=== PATIENT | male | born 1950 | race Caucasian/White ===

== ENCOUNTER 2021-05-04 14:17 | Emergency (ER) | payer OTHER, SELFPAY ==
[2021-05-04 14:18] VITALS: BP 183/99; PULSE 96; RESP 16; TEMP 36.4; O2SAT 96; BMI 25.7
--- NOTE | 2021-05-04 14:36 | CT_ITS ---
STUDY: CT BRAIN WITHOUT CONTRAST REASON FOR EXAM: Male, 71 years old. Change in vision RADIATION DOSAGE (If Supplied By Facility): CTDIvol = ( 44.99 ) mGy, DLP = ( 796.11 ) mGycm TECHNIQUE: Transaxial CT imaging of the brain was performed without administration of intravenous contrast material. Individualized dose optimization techniques were used for this CT. COMPARISON: No relevant priors. FINDINGS: Normal soft tissue structures. Normal calvarium. There is mild cerebral atrophy with widening of the extra-axial spaces and ventricular dilatation. Normal white matter tracts of the cerebral hemispheres. Normal basal ganglia and thalami. Normal brainstem. Normal cerebellum. There is no intracranial hemorrhage. There are no findings of an acute ischemic infarction. Normal visualized paranasal sinuses. CT/Brain/Head without Contrast IMPRESSION: Chronic involutional changes of the brain. Electronically Signed: César Chung MD at 15:24 EDT , Service support ,
--- NOTE | 2021-05-04 14:56 | EX.ED.VIS.EY ---
HPI History of Present Illness Chief Complaint: Eye Problem Narrative Narrative: Patient is a 71-year-old male who states that over the past few days he has noticed that he has blurry/double vision in his right eye but only when he deviates his eyes to the right. He denies any trauma prior to this happening he denies any eye pain or light sensitivity. He states he does not wear contacts or glasses. He states he contacted his doctor at [facility] and was advised he should come get a head CT and therefore presents for evaluation. PFSH PFSH Allergy/AdvReac Type Severity Reaction Status Date / Time No Known Allergies Allergy Verified 05/04/21 14:19 Social History Smoking Status: Current every day smoker tobacco type: cigarettes ROS ROS ED Constitutional Constitutional ED: Denies chills or fever(s) Eyes Eyes: Reports blurry vision and change in vision ENT ENT ED: Denies sore throat Cardiovascular Cardiovascular: Denies chest pain Respiratory/Chest Respiratory/Chest: Denies cough or dyspnea Gastrointestinal Gastrointestinal: Denies abdominal pain, diarrhea, nausea or vomiting Genitourinary Genitourinary ED: Denies dysuria Musculoskeletal Musculoskeletal: Denies myalgias Integumentary Denies rash Neurologic Neurologic: Denies headache(s), paresthesias or weakness Hematologic/Lymphatic Hematologic/Lymphatic: Denies easy bleeding or easy bruising EXAM Physical Exam Const Vital Signs: 05/04/21 14:18 Temperature 97.5 F L Temperature Source Temporal Pulse Rate 96 Respiratory Rate 16 Blood Pressure 183/99 H Blood Pressure Mean 127 Pulse Ox 96 Oxygen Delivery Method Room Air Positive well nourished and well developed General Appearance ED: well developed HEENT Reports moist mucous membranes HEENT Narrative: No pain on palpation along either temporal portion of the scalp Eyes PERRL and EOMs intact bilaterally Eyes Narrative: Pupils are equal reactive to light and accommodation extraocular muscles are intact. The macula is normal in appearance and not pale in color. There is no blood and thunder appearance noted. Patient has normal visual acuity bilaterally. There are no obvious signs of trauma or infection present. General Eye ED: Yes normal appearance of both eyes and normal light reflex Visual Acuity: acuity normal Alignment: alignment normal Periorbital: periorbital findings normal Eyelid: eyelids normal Conjunctiva: conjunctiva normal Sclera: sclera normal Cornea: cornea normal Pupil: PERRL and accommodation reflex normal Direct Ophthalmoscopy: normal light reflex, anterior chamber normal, No macular abnormality and No vascular abnormality Neck full ROM, No nuchal rigidity and supple Resp normal respiratory effort and clear to auscultation bilaterally Cardio regular rate and regular rhythm GI non-tender and non-distended Auscultation: normoactive bowel sounds Palpation: soft Extremity normal to inspection Neuro oriented x3 and CN's II-XII intact bilaterally Sensorium / Orientation: alert Psych mental status grossly normal Skin no rashes or lesions noted Lesions: no lesions Rashes: no rashes MDM MDM MDM Narrative Medical decision making narrative: Patient presented to the ER with no focal neurologic deficits and his extraocular motions were intact. His eye was not held in a down and out position to suggest any type of cranial nerve palsy. I did perform a CT scan at this time which reveals age-related changes with no obvious bleed or mass. On reevaluation he still has 20/20 vision in his extraocular motions remain intact. Therefore this time I feel he is safe for discharge and can follow-up with his front end manager for further testing Discharge Plan Triage Chief Complaint: Eye Problem ED Provider: Reyes Dougherty Dx/Rx/DC Orders Clinical Impression: Diplopia Instructions: ED Double Vision (Diplopia) [facility]errals: [facility] [Primary Care Provider] - Disposition Disposition: Home, Self Care
[2021-05-04 15:54] VITALS: BP 165/88; PULSE 82; RESP 16; O2SAT 97
== END 2021-05-04 16:03 | disposition home or self-care (01) ==
PROVIDERS: Emergency Provider Emergency Medicine
DX: H53.2 Diplopia (principal); F17.210 Nicotine dependence, cigarettes, uncomplicated
CPT/HCPCS: 70450; 99283

== ENCOUNTER → 2023-06-30 | Outpatient (CLI) | payer MEDICARE, MEDICAID, SELFPAY ==
[2023-06-30 12:25] LABS: Absolute Lymphocyte Count 1.52 X10^3/uL (0.83-4.51); Absolute Neutrophil Count 4.9 X10^3/uL (2.0-7.7); Basophil# 0.03 X10^3/uL; Basophil% 0.4 % (0-1); Eosinophil# 0.09 X10^3/uL; Eosinophils% 1.2 % (0-5); Lymphocyte # 1.52 X10^3/ul (0.83-4.51); Lymphocyte % 20.5 % (19-41); Mean Corp Hgb Conc 31.7 g/dL (32-36); Mean Corpuscular Hgb 27.9 pg (27.0-32.0); Mean Corpuscular Volume 87.9 fL (80-94); Mean Platelet Vol. 10.2 fl (6.2-12.0); Monocyte# 0.87 X10^3/uL; Monocyte% 11.7 % (0-10); NRBC Flagged by Analyzer 0 % (0-5); Neutrophil # 4.89 X10^3/uL (2.7-7.7); Neutrophil % 65.9 % (47-70); Platelet Count 287 K/mm3 (150-450); Red Blood Count 6.46 M/mm3 (4.6-6.2); White Blood Count 7.4 K/mm3 (4.4-11.0)
[2023-06-30 12:56] LABS: AST(SGOT) 13 U/L (15-37); Alanine Aminotransfer ALT/SGPT 18 U/L (16-61); Alkaline Phosphatase 81 U/L (45-117); Anion Gap 6 (5-15); BUN 10 mg/dL (7-18); BUN/Creat Ratio 9.4 RATIO (10-20); Calcium,Total 9.5 mg/dL (8.5-10.1); Chloride 104 mmol/L (98-107); Cholesterol 225 mg/dL (200); Creatinine, Serum 1.06 mg/dL (0.70-1.30); EST Glomerular Filtration Rate 73 mL/min (>60); Est Glom Filt Rate - Afr Amer 88 mL/min (>60); Globulin 4.1 g/dL (2.2-4.2); Glucose 200 mg/dL (74-106); High Density Lipoprotein 38 mg/dL; Potassium 3.8 mmol/L (3.5-5.1); Protein, Total 8.1 g/dL (6.4-8.2); Sodium Level 138 mmol/L (136-145); Triglycerides 70 mg/dL; Very Low Density Lipoprotein 14 mg/dL (5-40)
[2023-06-30 13:51] LABS: Hemoglobin A1c 8.8 % (3.8-5.6)
[2023-06-30 14:40] LABS: Hematocrit 56.8 % (40-54)
[2023-07-01 13:22] LABS: Pathologist Review Reviewed
== END | disposition home or self-care (01) ==
LOC: MFPLAB 10:01
PROVIDERS: PCP Family Medicine; Visit Provider Family Medicine
DX: I10 Essential (primary) hypertension (principal); E11.9 Type 2 diabetes mellitus without complications; E78.5 Hyperlipidemia, unspecified
CPT/HCPCS: 36415; 80053; 80061; 83036; 85025

== ENCOUNTER → 2023-07-07 | Outpatient (CLI) | payer MEDICARE, MEDICAID, SELFPAY ==
[2023-07-07 12:47] LABS: Absolute Lymphocyte Count 1.76 X10^3/uL (0.83-4.51); Absolute Neutrophil Count 4.7 X10^3/uL (2.0-7.7); Basophil# 0.03 X10^3/uL; Basophil% 0.4 % (0-1); Eosinophils% 1.3 % (0-5); Hematocrit 54.8 % (40-54); Hemoglobin 17.5 g/dL (13.0-16.5); Lymphocyte # 1.76 X10^3/ul (0.83-4.51); Lymphocyte % 23.5 % (19-41); Mean Corp Hgb Conc 31.9 g/dL (32-36); Mean Corpuscular Hgb 28.1 pg (27.0-32.0); Mean Corpuscular Volume 88.1 fL (80-94); Mean Platelet Vol. 9.9 fl (6.2-12.0); Monocyte# 0.85 X10^3/uL; Monocyte% 11.4 % (0-10); NRBC Flagged by Analyzer 0 % (0-5); Neutrophil % 62.9 % (47-70); Platelet Count 288 K/mm3 (150-450); RBC Distribution Width CV 13.1 % (11.6-14.6); RBC Distribution Width SD 41.9 fl (35.1-43.9); Red Blood Count 6.22 M/mm3 (4.6-6.2); White Blood Count 7.5 K/mm3 (4.4-11.0)
== END | disposition home or self-care (01) ==
LOC: MFPLAB 10:52
PROVIDERS: PCP Family Medicine; Visit Provider Family Medicine
DX: D58.2 Other hemoglobinopathies (principal)
CPT/HCPCS: 36415; 85025

== ENCOUNTER → 2023-10-04 | Outpatient (CLI) | payer MEDICARE, MEDICAID, SELFPAY ==
[2023-10-04 12:52] LABS: Hemoglobin A1c 9.4 % (3.8-5.6)
== END | disposition home or self-care (01) ==
LOC: MFPLAB 10:46
PROVIDERS: PCP Family Medicine; Visit Provider Family Medicine
DX: E11.9 Type 2 diabetes mellitus without complications (principal)
CPT/HCPCS: 36415; 83036

== ENCOUNTER → 2024-02-02 | Outpatient (CLI) | payer MEDICARE, MEDICAID, SELFPAY ==
[2024-02-02 15:09] LABS: Absolute Lymphocyte Count 1.48 X10^3/uL (0.83-4.51); Basophil# 0.04 X10^3/uL; Basophil% 0.5 % (0-1); Eosinophil# 0.05 X10^3/uL; Eosinophils% 0.7 % (0-5); Hematocrit 54.9 % (40-54); Hemoglobin 17.7 g/dL (13.0-16.5); Lymphocyte # 1.48 X10^3/ul (0.83-4.51); Lymphocyte % 19.7 % (19-41); Mean Corp Hgb Conc 32.2 g/dL (32-36); Mean Corpuscular Hgb 27.2 pg (27.0-32.0); Mean Corpuscular Volume 84.3 fL (80-94); Mean Platelet Vol. 9.7 fl (6.2-12.0); Monocyte# 0.83 X10^3/uL; Monocyte% 11.1 % (0-10); NRBC Flagged by Analyzer 0 % (0-5); Neutrophil # 5.04 X10^3/uL (2.7-7.7); Neutrophil % 67.2 % (47-70); Platelet Count 309 K/mm3 (150-450); RBC Distribution Width CV 13.9 % (11.6-14.6); Red Blood Count 6.51 M/mm3 (4.6-6.2); White Blood Count 7.5 K/mm3 (4.4-11.0)
== END | disposition home or self-care (01) ==
LOC: MFPLAB 11:52
PROVIDERS: PCP Family Medicine; Visit Provider Family Medicine
DX: D58.2 Other hemoglobinopathies (principal)
CPT/HCPCS: 36415; 85025

== ENCOUNTER → 2024-02-24 | Outpatient (CLI) | payer MEDICARE, MEDICAID, SELFPAY ==
--- NOTE | 2024-02-24 12:44 | CDU_ITS ---
Reason For Study: Syncope and collapse Rt. Velocities/BP Lt. Velocities/BP Prox CCA 68.3/7.8 cm/sec. Prox CCA 84.9/9.9 cm/sec. Mid CCA 88.1/14.5 cm/sec. Mid CCA 55.2/13.3 cm/sec. Dist CCA 67.4/10.7 cm/sec. Dist CCA 59.6/9 cm/sec. Prox ICA 80.6/16.8 cm/sec. Prox ICA 148.5/33.4 cm/sec. Mid ICA 78.4/23.4 cm/sec. Mid ICA 80.6/30 cm/sec. Dist ICA 68.5/17.9 cm/sec. Dist ICA 79.4/25.6 cm/sec. Rt. ICA/CCA = 0.91. Lt. ICA/CCA = 2.69. Prox ECA 94.9/8 cm/sec. Prox ECA 200.4/24.8 cm/sec. Rt. Vert. 32.5/8.1 cm/sec. Lt. Vert. 52.2/15.4 cm/sec. Right Extracranial There is homogeneous, smooth atherosclerotic plaque noted in the right common carotid artery. There is heterogeneous, irregular atherosclerotic plaque noted in the right internal carotid artery. There is homogeneous, smooth atherosclerotic plaque noted in the right external carotid artery. Antegrade flow is noted in the right vertebral artery. Left Extracranial There is homogeneous, smooth atherosclerotic plaque noted in the left common carotid artery. There is heterogeneous, irregular atherosclerotic plaque noted in the left internal carotid artery. There is heterogeneous, irregular atherosclerotic plaque noted in the left external carotid artery. Antegrade flow is noted in the left vertebral artery. Procedure Carotid Duplex [id number]. This is a Carotid Duplex examination using B-mode, color flow and specral Doppler. Exam performed in department. VL/Carotid Duplex Ultrasound Interpretation Summary Mild (<50%) stenosis right extracranial internal carotid. Moderate (50-69%) stenosis left extracranial internal carotid. Patent and antegrade vertebrals bilaterally. Ordering Physician: Romy Alvarez Referring Physician: Romy Alvarez Performed By: Zuly Chandra RVT
--- NOTE | 2024-02-24 12:44 | ECHOD_ITS ---
Reason For Study: SYNCOPE Procedure This was a 2D Doppler, Color Flow transthoracic echocardiogram. Exam performed in department. Left Ventricle Normal LV size. The estimated ejection fraction is 70 %. No evidence for diastolic dysfunction. No regional wall motion abnormalities noted. Right Ventricle Normal RV size. Normal systolic function. Atria The left and right atria are normal. No doppler evidence for ASD. Mitral Valve There is no mitral valve stenosis. No mitral valve insufficiency. Tricuspid Valve There is no tricuspid stenosis. Trivial tricuspid valve insufficiency. Pulmonary artery systolic pressure is 30-35 mmHg. Aortic Valve Trisinus/trileaflet aortic valve. Moderate diffuse aortic valve thickening. Mild aortic stenosis. Mild (1+) aortic valve insufficiency. Pulmonic Valve There is no pulmonic valvular stenosis. No pulmonic valve insufficiency. Great Vessels Normal aortic root. Pericardium/Pleural No pericardial effusion. MMode/2D Measurements & Calculations RVDd: 3.4 cm LVOT diam: 1.9 cm LAV(MOD-bp): 32.3 ml LVOT area: 2.8 cm2 LAV(MOD-bp) Indexed: 17.2 ml/m2 LAV(MOD-sp2): 32.9 ml LAV(MOD-sp4): 30.3 ml SV(MOD-sp4): 40.6 ml SV(sp4-el): 42.2 ml LVAd ap4: 22.7 cm2 LVLd ap4: 7.6 cm EDV(MOD-sp4): 57.0 ml EDV(sp4-el): 57.8 ml LVAs ap4: 10.4 cm2 LVLs ap4: 5.9 cm ESV(MOD-sp4): 16.3 ml ESV(sp4-el): 15.5 ml EF(MOD-sp4): 71.3 % EF(sp4-el): 73.1 % LA A4 area: 13.6 cm2 LA dimension(2D): 3.3 cm RA A4 area: 15.5 cm2 Time Measurements MV dec time: 0.13 sec Doppler Measurements & Calculations MV E max sharif: 102.9 cm/sec Lat Peak E' Sharif: 8.3 cm/sec Med Peak E' Sharif: 8.2 cm/sec MV A max sharif: 55.0 cm/sec E/E' lat: 12.4 E/E' med: 12.6 MV E/A: 1.9 MV V2 max: 95.1 cm/sec MV dec slope: 812.5 cm/sec2 Ao V2 max: 191.7 cm/sec MV max P.6 mmHg Ao max P.9 mmHg MV V2 mean: 47.7 cm/sec Ao V2 mean: 124.9 cm/sec MV mean P.1 mmHg Ao mean P.4 mmHg MV V2 VTI: 22.4 cm Ao V2 VTI: 43.6 cm MVA(VTI): 3.7 cm2 AV (velocity ratio): 0.68 RENITA(I,D): 1.9 cm2 RENITA(V,D): 1.8 cm2 AI max sharif: 531.7 cm/sec LV V1 max: 122.0 cm/sec SV(LVOT): 83.7 ml AI max P.1 mmHg LV V1 max P.0 mmHg LV V1 mean P.8 mmHg AI dec slope: 368.8 cm/sec2 LV V1 mean: 76.6 cm/sec AI P1/2t: 422.2 msec LV V1 VTI: 29.6 cm PA V2 max: 79.6 cm/sec PA V2 mean: 59.0 cm/sec ECHO/Echo Complete Interpretation Summary The estimated ejection fraction is 70 %. No evidence for diastolic dysfunction. Mild aortic stenosis. Mild (1+) aortic valve insufficiency. Ordering Physician: Romy Alvarez Referring Physician: Romy Alvarez Performed By: Yu Pettit RCS
== END | disposition home or self-care (01) ==
PROVIDERS: PCP Family Medicine; Referring Provider Family Medicine; Visit Provider Family Medicine
DX: R55 Syncope and collapse (principal)
CPT/HCPCS: 93306; 93880

== ENCOUNTER → 2024-03-15 | Outpatient (CLI) | payer MEDICARE, MEDICAID, SELFPAY ==
[2024-03-15 13:52] LABS: Hemoglobin A1c 8.6 % (3.8-5.6)
== END | disposition home or self-care (01) ==
LOC: MFPLAB 10:12
PROVIDERS: PCP Family Medicine; Referring Provider Family Medicine; Visit Provider Family Medicine
DX: E11.9 Type 2 diabetes mellitus without complications (principal)
CPT/HCPCS: 36415; 83036

== ENCOUNTER → 2024-03-29 | Outpatient (CLI) | payer MEDICARE, MEDICAID, SELFPAY ==
--- NOTE | 2024-03-29 15:04 | RAD_ITS ---
STUDY: X-RAY - LEFT KNEE REASON FOR EXAM: Male, 74 years old. Knee pain. TECHNIQUE: 3 views of the left knee. COMPARISON: None. FINDINGS: Normal visualized distal femur. Normal visualized proximal tibia and fibula. Normal proximal tibiofibular articulation. There is no demonstrated fracture. Normal medial femorotibial compartment. Normal lateral femorotibial compartment. Normal patellofemoral articulation. There is a tiny knee joint effusion. There are atherosclerotic calcifications. RAD/Knee 3 Views IMPRESSION: Tiny joint effusion. No demonstrated fracture. Electronically Signed: Ramon Santos MD at 15:37 EDT ,
--- NOTE | 2024-03-29 15:04 | RAD_ITS ---
STUDY: X-RAY - RIGHT KNEE REASON FOR EXAM: Male, 74 years old. Knee pain. TECHNIQUE: 3 views of the right knee. COMPARISON: None. FINDINGS: Normal visualized distal femur. Normal visualized proximal tibia and fibula. Normal proximal tibiofibular articulation. There is no demonstrated fracture. Normal medial femorotibial compartment. Normal lateral femorotibial compartment. Normal patellofemoral articulation. There is a small joint effusion. There are atherosclerotic calcifications. RAD/Knee 3 Views IMPRESSION: Small joint effusion. No demonstrated fracture. Electronically Signed: Ramon Santos MD at 12:33 EDT ,
== END | disposition home or self-care (01) ==
PROVIDERS: PCP Family Medicine; Referring Provider Family Medicine; Visit Provider Family Medicine
DX: M25.561 Pain in right knee (principal); M25.562 Pain in left knee
CPT/HCPCS: 73562

== ENCOUNTER 2024-04-05 08:47 | Emergency (ER) | payer MEDICARE, MEDICAID, SELFPAY ==
[2024-04-05 08:49] VITALS: BP 166/89; PULSE 87; RESP 20; TEMP 36.7; O2SAT 96; BMI 19.3
--- NOTE | 2024-04-05 08:50 | NURSING ---
NO OLD EKGS
--- NOTE | 2024-04-05 09:08 | EDS_ITS ---
HPI History of Present Illness Chief Complaint: Chest Pain Informant: patient Onset/Context/Timing Onset: Today and Hours (3) Activity at onset: gradual Timing: Continuous Quality: Positive for Tightness Location: Substernal Worsened By: Nothing Relieved By: Nothing Associated Symptoms: Positive for Cough and Palpitations; Negative for Nausea, Vomiting, Diaphoresis, Dyspnea, Fever, Lightheadedness or Acid Reflux Narrative Narrative: Patient presents with chest pain that began this morning. Patient states it began approximately 3 hours prior to arrival. Patient states that it came on gradually. Patient states it has been constant. Patient states it is starting to improve. Patient describes pain as tightness. Patient states he also felt like his heart was racing. Patient states his pain is over the substernal area. Patient states nothing makes it better and nothing makes it worse. Patient denies any nausea or vomiting. Patient denies any shortness of breath. Patient denies any fevers or chills. Patient denies any diaphoresis. Patient does admit to a cough yesterday. CVD Risk Factors: Positive for Hypertension, Diabetes and Smoking; Negative for Hypercholesterolemia or Family History 1' </=55 PE Risk Factors: Negative for Recent Travel/Surgery, Recent Immobilization, Prior DVT or PE, Cancer or OCP + Smoking + >/=35 PFSH PFSH Medical History Diabetes GERD (gastroesophageal reflux disease) Hyperlipidemia Hypertension Home Medications ?Medication ?Instructions ?Recorded ?Last Taken ?Type empagliflozin 25 mg tablet 25 mg PO DAILY 04/05/24 Unknown History (Jardiance) pantoprazole 40 mg tablet,delayed 40 mg PO DAILY 04/05/24 Unknown History release Allergy/AdvReac Type Severity Reaction Status Date / Time No Known Allergies Allergy Verified 04/05/24 08:51 Family History no significant family his no significant family history Surgical History Hx of surgical amputation of finger Social History (Updated 04/05/24 @ 09:[address] Edson Holman DO) Smoking Status: Current every day smoker tobacco type: cigarettes substance use type: marijuana ROS ROS ED Constitutional Constitutional ED: Denies chills or fever(s) Eyes Eyes: Denies blurry vision or change in vision ENT ENT ED: Denies rhinorrhea or sore throat Cardiovascular Cardiovascular: Reports chest pain and palpitations Respiratory/Chest Respiratory/Chest: Reports cough; Denies dyspnea Gastrointestinal Gastrointestinal: Denies abdominal pain, nausea or vomiting Genitourinary Genitourinary ED: Denies dysuria or hematuria Musculoskeletal Musculoskeletal: Denies back pain or neck pain Integumentary Denies abscess or rash Neurologic Neurologic: Denies headache(s) or weakness Allergic/Immunologic Allergic/Immunologic ED: Denies mouth swelling or urticaria EXAM Physical Exam Const Vital Signs: 04/05/24 08:49 04/05/24 09:34 04/05/24 09:48 Temperature 98.1 F Temperature Source Oral Pulse Rate 87 74 Respiratory Rate 20 H 15 Blood Pressure 166/89 H 106/89 H Blood Pressure Mean 114 94 Pulse Ox 96 97 95 Oxygen Delivery Method Room Air Room Air Room Air 04/05/24 10:14 04/05/24 11:27 Temperature 97.6 F L 98.1 F Temperature Source Oral Pulse Rate 73 79 Respiratory Rate 19 H 16 Blood Pressure 106/89 H 157/81 H Blood Pressure Mean 94 106 Pulse Ox 96 96 Oxygen Delivery Method Room Air Positive well nourished and well developed General Appearance ED: well developed and NAD HEENT Reports moist mucous membranes Neck supple and no JVD Resp normal respiratory effort and clear to auscultation bilaterally Cardio regular rate and regular rhythm GI soft to palpation, non-tender and non-distended Neuro oriented x3, CN's II-XII intact bilaterally and no sensory deficits noted Sensorium / Orientation: awake and alert Motor Exam: strength 5/5 throughout Psych mental status grossly normal Skin no rashes or lesions noted Heart Score History: Slightly/Non-Suspicious ECG: Nonspecific Repolarization Age: >/= 65 years Risk Factors: >/= 3 Risk Factors or History of CAD Score: 5 MDM MDM MDM Narrative Medical decision making narrative: Differential diagnosis includes cardiac dysrhythmia, cardiac ischemia, electrolyte abnormality, pneumonia, pneumothorax, viral illness, gastroesophageal reflux disease, and anxiety. EKG will be obtained to assess for cardiac dysrhythmia and cardiac ischemia. Chest x-ray will be obtained to a ssess for pneumonia and pneumothorax. CBC will be obtained to assess for leukocytosis and anemia. Basic metabolic profile will be obtained to assess for electrolyte abnormality and renal function. High-sensitivity troponin will be obtained to assess for cardiac ischemia. 2-hour repeat high-sensitivity troponin will be obtained to assess for ongoing cardiac ischemia. Lab Data Attestation: I reviewed the patient's lab results. Lab results narrative: CBC was reviewed. Hemoglobin was slightly elevated at 18.2. The remainder is within normal limits. Basic metabolic profile was reviewed. Glucose was mildly elevated at 158. The remainder is within normal limits. PT with INR and PTT were reviewed and were within normal limits. High-sensitivity troponin was reviewed and was normal at 10. Labs: Laboratory Results - last 24 hr 04/05/24 04/05/24 08:51 10:17 WBC 6.8 RBC 6.74 H Hgb 18.2 H* Hct 57.1 H MCV 84.7 MCH 27.0 MCHC 31.9 L RDW Std Deviation 41.1 RDW Coeff of Jesse 13.4 Plt Count 259 MPV 9.8 Immature Gran % (Auto) 0.600 Neut % (Auto) 69.7 Lymph % (Auto) 9.2 L Calloway % (Auto) 18.4 H Eos % (Auto) 1.5 Baso % (Auto) 0.6 Absolute Neuts (auto) 4.8 Absolute Lymphs (auto) 0.63 L Nucleated RBC % 0 PT Cancelled 14.2 INR Cancelled 1.1 APTT Cancelled 34.4 Sodium 137 Potassium 3.6 Chloride 99 Carbon Dioxide 29.0 Anion Gap 9 BUN 16 Creatinine 1.15 Estim Creat Clear Calc 50.98 Est GFR (MDRD) Af Amer 80 Est GFR (MDRD) Non-Af 66 BUN/Creatinine Ratio 13.9 Glucose 158 H Calcium 9.6 Troponin I High Sens 10 Radiography Diagnostic Testing: Clinical Impression(s) from Imaging Studies Chest X-Ray 04/05/24 09:23 IMPRESSION: Hyperinflation and findings suggestive of COPD. Prominence of the central pulmonary arteries. Electronically Signed: César Chung MD at 9:44 EDT , [facility] and lateral chest x-ray was obtained. There are 2 views. On my independent interpretation, lung beltran are hyperinflated consistent with COPD. There is normal cardiac silhouette. Bony thorax is normal. There is no acute process noted. Radiologist also interpreted the x-ray and agrees. EKG Initial EKG: Attestation: I personally reviewed and interpreted this EKG as follows: Interpretation: Sinus Rhythm and Non-Specific ST Changes Comments: EKG was obtained. On my independent interpretation, it showed a normal sinus rhythm with occasional PACs with a rate of 78. LA interval, QRS interval, and QTc intervals were all normal. Perry was normal. There are nonspecific ST-T wave changes. Prior EKG tracings: not available for review Prior: No Prior Treatment and Re-Evaluation :: Patient was given aspirin. Patient did not want to wait to have a repeat troponin drawn. Patient was advised that his symptoms started only 3 hours prior to arrival and the initial troponin could be falsely negative. Patient understood the risk. Patient was advised of the risks of leaving without obtaining a second troponin. Patient was advised of the risks including myocardial infarction and . Patient wanted to leave. Patient will be signed out AGAINST MEDICAL ADVICE. Patient was instructed return if worse in any way. Patient was instructed to follow-up with his primary care physician. Discharge Plan Triage Chief Complaint: Chest Pain ED Provider: Edson Holman Dx/Rx/DC Orders Clinical Impression: Chest pain, Hypertension Instructions: ED Chest Pain, Uncertain Cause Prescriptions: No Action pantoprazole 40 mg tablet,delayed release (DR/EC) 40 mg PO DAILY Jardiance 25 mg tablet 25 mg PO DAILY Primary Care Provider: Romy Alvarez Referrals: Romy Alvarez MD [Primary Care Provider] - 3-5 Days Print Language: [place] Islander Disposition Disposition: Against Medical Advice Discharge Date/Time: 04/05/24 11:28
--- NOTE | 2024-04-05 09:22 | EKG12_ITS ---
Test Reason : CHEST TIGHTNESS Blood Pressure : / mmHG Vent. Rate : 078 BPM Atrial Rate : 078 BPM P-R Int : 118 ms QRS Dur : 084 ms QT Int : 378 ms P-R-T Axes : -27 053 -88 degrees QTc Int : 430 ms Sinus rhythm with Premature supraventricular complexes Low voltage QRS ST & T wave abnormality, consider inferolateral ischemia Abnormal ECG Confirmed by Esteban Gloria ([id number]), communications editor VANDA VEGA ([id number]) on 04/09/2024 10:44:49 AM Referred By: Confirmed By:Esteban Gloria
--- NOTE | 2024-04-05 09:23 | RAD_ITS ---
STUDY: X-RAY CHEST REASON FOR EXAM: Male, 74 years old. Chest pain and chest tightness. TECHNIQUE: PA and lateral views of the chest. COMPARISON: None. FINDINGS: EKG electrodes are seen. There is hyperinflation of the lungs consistent with chronic obstructive lung disease (COPD). There is no demonstrated pleural abnormality. Normal size heart. Normal mediastinum and phu. There is prominence of the pulmonary hilar arteries without peripheral pulmonary vascular congestion, suggesting pulmonary hypertension. There is atherosclerotic calcification of the aortic arch. There are degenerative changes of the visualized thoracic spine. Normal visualized ribs, clavicles, and shoulders. There is no demonstrated abnormality of the visualized soft tissue structures of the upper abdomen. RAD/Chest PA and Lateral IMPRESSION: Hyperinflation and findings suggestive of COPD. Prominence of the central pulmonary arteries. Electronically Signed: César Chung MD at 9:44 EDT ,
[2024-04-05 09:34] VITALS: O2SAT 97
[2024-04-05] MEDS: Aspirin 81 MG TAB.CHEW 324 MG PO (09:34)
[2024-04-05 09:39] LABS: Absolute Lymphocyte Count 0.63 X10^3/uL (0.83-4.51); Absolute Neutrophil Count 4.8 X10^3/uL (2.0-7.7); Basophil# 0.04 X10^3/uL; Basophil% 0.6 % (0-1); Eosinophils% 1.5 % (0-5); Lymphocyte # 0.63 X10^3/ul (0.83-4.51); Lymphocyte % 9.2 % (19-41); Mean Corp Hgb Conc 31.9 g/dL (32-36); Mean Corpuscular Volume 84.7 fL (80-94); Mean Platelet Vol. 9.8 fl (6.2-12.0); Monocyte# 1.26 X10^3/uL; Monocyte% 18.4 % (0-10); NRBC Flagged by Analyzer 0 % (0-5); Neutrophil # 4.76 X10^3/uL (2.7-7.7); Neutrophil % 69.7 % (47-70); Platelet Count 259 K/mm3 (150-450); RBC Distribution Width CV 13.4 % (11.6-14.6); RBC Distribution Width SD 41.1 fl (35.1-43.9); Red Blood Count 6.74 M/mm3 (4.6-6.2); White Blood Count 6.8 K/mm3 (4.4-11.0)
[2024-04-05 09:40] LABS: Hematocrit 57.1 % (40-54)
[2024-04-05 09:42] LABS: Hemoglobin 18.2 g/dL (13.0-16.5)
[2024-04-05 09:48] VITALS: BP 106/89; PULSE 74; RESP 15; O2SAT 95
[2024-04-05 09:50] LABS: Anion Gap 9 (5-15); BUN 16 mg/dL (7-18); BUN/Creat Ratio 13.9 RATIO (10-20); Calcium,Total 9.6 mg/dL (8.5-10.1); Chloride 99 mmol/L (98-107); Creatinine, Serum 1.15 mg/dL (0.70-1.30); EST Glomerular Filtration Rate 66 mL/min (>60); Est Glom Filt Rate - Afr Amer 80 mL/min (>60); Estimated Creatinine Clearance 50.98 ml/min; Glucose 158 mg/dL (74-106); Potassium 3.6 mmol/L (3.5-5.1); Sodium Level 137 mmol/L (136-145); Troponin-I HS (w/2H Reflex) 10 pg/mL (3.0-78.0)
[2024-04-05 10:14] VITALS: BP 106/89; PULSE 73; RESP 19; TEMP 36.4; O2SAT 96
[2024-04-05 10:38] LABS: International Normalized Ratio 1.1; Prothrombin Time (Protime)PT. 14.2 SECONDS (11.7-14.9)
[2024-04-05 10:39] LABS: Partial Thromboplast Time 34.4 Seconds (24.1-36.2)
--- NOTE | 2024-04-05 11:25 | ED.RN ---
PT STATES HE WANTS TO SIGN HIMSELF OUT. PT WOUNLD NOT TALK ABOUT ANYTHING AND STATED HES LEAVING. PT SIGNED AMA FORM AND PT IS AWARE ALL THE TEST TO CHECK HIS HEART WERE NOT COMPLETED AND WE CAN NOT TELL HIM HE IS NOT HAVING A HEART ATTACK. PT STATES HE DOESN'T CARE HES NOT GOING TO STAY HERE ALL DAY.
[2024-04-05 11:27] VITALS: BP 157/81; PULSE 79; RESP 16; TEMP 36.7; O2SAT 96
[2024-04-05 11:28] LABS: Reflex Troponin-HS? (from REC) Y
[2024-04-06 13:59] LABS: Pathologist Review Reviewed
== END 2024-04-05 11:28 | disposition left against medical advice (07) ==
PROVIDERS: Emergency Provider Emergency Medicine; PCP Family Medicine; Visit Provider Emergency Medicine
DX: R07.9 Chest pain, unspecified (principal); E11.65 Type 2 diabetes mellitus with hyperglycemia; I10 Essential (primary) hypertension; E78.5 Hyperlipidemia, unspecified; R00.2 Palpitations; K21.9 Gastro-esophageal reflux disease without esophagitis; F17.210 Nicotine dependence, cigarettes, uncomplicated; Z79.84 Long term (current) use of oral hypoglycemic drugs; Z79.899 Other long term (current) drug therapy
CPT/HCPCS: 71046; 80048; 84484; 85025; 85610; 85730; 93005; 99284; A4216

== ENCOUNTER → 2024-04-12 | Outpatient (CLI) | payer MEDICARE, MEDICAID, SELFPAY ==
--- NOTE | 2024-04-12 09:48 | ART_ITS ---
Reason For Study: CLAUDICATION Procedure A bilateral lower extremity continuous wave Doppler with analog waveform analysis and ankle brachial indexes. Left Segmental Pressures Left brachial= 168mmHg. Left posterior tibial artery = 135mmHg. Left dorsalis pedis artery = 120mmHg. Left digit = 68 mmHg. The left posterior tibial artery waveforms are biphasic. The left dorsalis pedis waveforms are monophasic. Right Segmental Pressures Right brachial= 174mmHg. Right posterior tibial artery = 128mmHg. Right dorsalis pedis artery = 118mmHg. Right digit = 90 mmHg. The right posterior tibial artery waveforms are monophasic. The right dorsalis pedis waveforms are monophasic. Indices The right resting ankle brachial index is 0.74. The right ankle brachial index by the posterior tibial artery is 0.74. The right ankle brachial index by the dorsalis pedis is 0.68. The right digital-brachial index is 0.52. The left resting ankle brachial index is 0.78. The left ankle brachial index by the posterior tibial artery is 0.78. The left ankle brachial index by the dorsalis pedis is 0.69. The left digital-brachial index is 0.39. VL/Ankle Brachial Index Interpretation Summary Monophasic Doppler waveforms are noted at ankle level on the right. Biphasic an d monophasic Doppler waveforms are noted at ankle level on the left. Pulse-volume recordings appear diminished at digital level bilaterally, but satisfactory at ankle level bilaterally. Resting ankle-b rachial indices are moderately diminished bilaterally. The right digital-brachial index is mildly d iminished. The left digital-brachial index is moderately diminished. 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 There is evidence of mild arterial occlusive disease at digi kai level on the right. Ordering Physician: Romy Alvarez Referring Physician: ROMY ALVAREZ MD Performed By: Kandi Mendiola RVT, RDCS
== END | disposition home or self-care (01) ==
LOC: CVS 09:48
PROVIDERS: PCP Family Medicine; Referring Provider Family Medicine; Visit Provider Family Medicine
DX: I73.9 Peripheral vascular disease, unspecified (principal)
CPT/HCPCS: 93922

== ENCOUNTER → 2024-04-17 | Outpatient (CLI) | payer MEDICARE, MEDICAID, SELFPAY | END | disposition home or self-care (01) | LOC: PSN 10:28 | PROVIDERS: PCP Family Medicine; Referring Provider Family Medicine; Visit Provider Family Medicine | DX: J43.9 Emphysema, unspecified (principal) | CPT/HCPCS: 94060; 94726; 94729 ==

== ENCOUNTER → 2024-04-24 | Outpatient (CLI) | payer MEDICARE, MEDICAID, SELFPAY ==
--- NOTE | 2024-04-24 12:34 | RAD_ITS ---
EXAM: XR LUMBOSACRAL SPINE COMPLETE WITH FLEXION/EXTENSION, 6 OR MORE VIEWS CLINICAL INDICATION: dorsalgia TECHNIQUE: Lateral, frontal, oblique and lateral flexion/extension views of the lumbar spine and sacrum. COMPARISON: No relevant prior studies available. FINDINGS: VERTEBRAE: There is facet hypertrophy at L4-5 and L5-S1. There is no change in alignment with flexion or extension views. Preserved vertebral body height. No fracture. No spondylolisthesis. Preservation of the normal lumbar lordosis. No instability. DISC SPACES: See above. GASTROINTESTINAL TRACT: Unremarkable as visualized. Included bowel gas pattern is non-obstructive. RAD/L/S Spine w Bend Min 6 Vw IMPRESSION: 1. No acute osseous abnormalities in the lumbar spine. There is no change with flexion or extension. 2. Facet hypertrophy at L4-5 and L5-S1. Electronically Signed: Javier Valdovinos MD at 23:55 EDT ,
== END | disposition home or self-care (01) ==
LOC: MTRAD 12:32
PROVIDERS: PCP Family Medicine; Referring Provider Family Medicine; Visit Provider Family Medicine
DX: M54.9 Dorsalgia, unspecified (principal)
CPT/HCPCS: 72114

== ENCOUNTER 2024-05-31 09:28 | Outpatient (RCR) | payer MEDICARE, MEDICAID, SELFPAY ==
--- NOTE | 2024-05-31 10:44 | HP.PTEVAL_ITS ---
Patient's Visit Information Visit Information Visit Information: TREV CLAY is a 74 year old M referred to Physical Therapy by Dr. Luis E Bradley DO with a diagnosis of BILATERAL PRIMARY OSTEOARTHRITIS OF KNEE ,PAIN IN RIGHT KNEE ,LEFT KNEE. Date of Evaluation: 05/31/24 Physical Therapist: Thompson Cerda, PT, Cert MDT, OCS Visit Plan Frequency: 2x /Week Duration: 4 Weeks Plan: PT INTERVENTIONS QUADS/HAMS/HIP BLE ,FUNCTIONAL STRENGTHENING AND AEROBIC EX'S Subjective Subjective: This 74 y/o male presents to physical therapy with bilateral knee pain. Patient knee pain for many years. Seen Dr Bradley did x-rays showed Mod DDD . Tried injection didn't help. Patient was provided celebrex. Location global knee and patella.Denies paresthesia/tingling-. Aggravating factors walking/standing ,difficulty squatting and unable kneel. Stairs okay. Alleviating rest ,hemp cream. Patient sleeps okay . Patient knee sleeves as needed.Patient pain described as ache. Patient condition affects QOL and function. Patient goals to decrease pain SOCAIL: lives with girl friend VOCATION: retired Pain Bilateral Knee: Pain Intensity (Out of 10): 5 Pain Intensity Range: 10 Objective Objective: POSTURE: mild forward posture GAIT: ambulates with reciprocal pattern PALAPTION: unremarkable EDEMA: absent FLEXABILITY: hamstrings min tight MMT: quads/hams/hip 4/5 ,ankle 4/5 AROM: 0-140 degrees left right 0-145 degrees Special Tests R Knee Danay - Meniscus: Negative R Knee Valgus - MCL: Negative R Knee Varus - LCL: Negative R Knee Patellar Apprehension - PFS: Negative R Knee Patellar Grind - PFS: Negative L Knee Danay - Meniscus: Negative L Knee Valgus - MCL: Negative L Knee Varus - LCL: Negative L Knee Patellar Apprehension - PFS: Negative L Knee Patellar Grind - PFS: Negative Balance/Special Test Scores Lower Extremity Functional Score: 40 Goals Goal 1:: Patient to be I with HEP for knees Goal Time Frame: 4-6 Weeks Goal 2:: Patient to improve LFES score by 5 points to improve QOL and function Goal Time Frame: 4-6 Weeks Goal 3:: Patient to demonstrate 50% improvement with increase function with less pain Goal Time Frame: 4-6 Weeks Goal 4:: Patient to be able to perform all ADL's and function with housework tasks with min limitations. Goal Time Frame: 4-6 Weeks Rehabilitation Potential Physical Therapy Diagnosis: This patient has knee pain with DJD affects walking and standing impairs housework tasks thus benefit from skilled PT Rehabilitation Potential: Good Anticipated Interventions Patient/Client Instruction: Educate patient on: Condition For the Purpose of:: To decrease pain, To increase ROM, To improve muscle performance and motor function, To improve ability to perform ADL's, To increase tolerance to activity/condition/position, To improve ability of physical actions for home/community/work/leisure and To improve gait and locomotor functions Therapeutic Exercise to Include: Strength training, Endurance training, Balance training, Postural training, Flexibilty training and Active ROM Comment: QUADS/HAMS/HIP For the Purpose of:: To decrease pain, To increase ROM, To improve muscle performance and motor function, To increase tolerance to activity/condition/position, To improve ability of physical actions for home/community/work/leisure, To improve health of tissue and To decrease soft tissue restriction Text: Thank you for the opportunity to evaluate your patient. For Medicare and Medicare HMO plans, please review the plan of care and approve it. It will need to be FAXED BACK to us at [phone] for Medicare purposes. For Medicare only, by signing this I certify the plan of care. Please let me know if there are questions or concerns regarding this plan of care. Physician Signature: Date:
--- NOTE | 2024-07-20 10:53 | HP.PTDCNRP_ITS ---
Patient Information Patient Information: TREV CLAY was seen in my office for initial evaluation on 05/31/24. The following Plan of Care was established for this patient: POC Established Initial Frequency: 2x /Week Initial Duration: 4 Weeks Anticipated Interventions Patient/Client Instruction: Educate patient on: Condition For the Purpose of:: To decrease pain, To increase ROM, To improve muscle performance and motor function, To improve ability to perform ADL's, To increase tolerance to activity/condition/position, To improve ability of physical actions for home/community/work/leisure and To improve gait and locomotor functions Therapeutic Exercise to Include: Strength training, Endurance training, Balance training, Postural training, Flexibilty training and Active ROM For the Purpose of:: To decrease pain, To increase ROM, To improve muscle performance and motor function, To increase tolerance to activity/co ndition/position, To improve ability of physical actions for home/community/work/leisure, To improve health of tissue and To decrease soft tissue restriction Last Seen Last Seen: This patient was last seen in our office . Pertinent comments regarding their Physical therapy will appear below: Patient was seen for PT for knee pain OA thus is d/c with HEP At this point I will be discontinuing this patient from physical therapy. I would be happy to see this patient again in the future if found appropriate by the physician. Thank you! Thompson Cerda, PT, Cert MDT, OCS Balance/Gait/Functional tests Balance/Special Test Scores Lower Extremity Functional Score: 40
== END 2024-05-31 19:00 | disposition home or self-care (01) ==
LOC: PT 09:28
PROVIDERS: PCP Family Medicine; Referring Provider Orthopaedic Surgery; Visit Provider Orthopaedic Surgery
DX: M25.561 Pain in right knee (principal); M25.562 Pain in left knee; M17.0 Bilateral primary osteoarthritis of knee
CPT/HCPCS: 97110; 97162

== ENCOUNTER → 2024-10-20 | Outpatient (CLI) | payer MEDICARE, MEDICAID, SELFPAY ==
--- NOTE | 2024-10-20 09:00 | CT_ITS ---
PROCEDURE: LOW DOSE CT LUNG SCREENING 10/20/2024 REASON FOR EXAM: Tobacco use. Current smoker with 56 pack-year history of tobacco use. COPD, asthma and difficulty breathing. TECHNIQUE: Low Dose CT Lung screening without contrast. Coronal and Sagittal reconstruction series were provided. One or more dose reduction techniques were used (e.g., Automated exposure control, adjustment of the mA and/or kV according to patient size, use of iterative reconstruction technique). REFERENCE LINK: [employer] Lung-RADS RADIATION DOSE SUMMARY: CTDlvol: 3.02 mGy DLP: 106.46 mGycm COMPARISON: None. FINDINGS: PULMONARY NODULES: (Only nodules >3mm are reported) Pulmonary Nodules: No suspicious nodules identified. Hardware:No hardware. Lymph Nodes:No lymphadenopathy. Heart and Vasculature:Normal size heart.Great vessels are grossly unremarkable. Coronary Artery Calcifications: Moderate calcific coronary artery disease is present. Lungs and Airways: Lungs are clear. No pleural effusions. Airways are clear. Pleura:No effusions. No pneumothorax. Upper Abdomen:No acute pathology demonstrated in the upper abdomen Bones:No aggressive bone process. CT/Low Dose CT Lung Screening IMPRESSION: Negative exam for pulmonary nodules. Coronary artery calcification (CAC) is moderate. Lung-RADS Category: 1 benign Other Significant Findings: None Recommendation: Continue follow-up annual low-dose CT screening exam so long as the patient qualifies. Reading Location: [facility]
== END | disposition home or self-care (01) ==
LOC: CT 08:58
PROVIDERS: PCP Family Medicine; Referring Provider Internal Medicine Pulmonary Disease; Visit Provider Internal Medicine Pulmonary Disease
DX: Z87.891 Personal history of nicotine dependence (principal)
CPT/HCPCS: 71271

== ENCOUNTER → 2024-12-14 | Outpatient (CLI) | payer MEDICARE, MEDICAID, SELFPAY ==
--- NOTE | 2024-12-14 11:30 | LES_PTH ---
PATIENT: TREV CLAY LOC: [facility] U#:[id number] AGE/SX: 74/M ROOM: RE12/14/[address]: Dr. Tamica Olivas MD : [id number] BED: DIS: 12/14/2024 SPEC #: [id number] RECD: 12/14/24 14:51 STATUS: ENA REEugene #: [id number] ROEL: 12/14/24 11:[address]: Tamica Olivas DEPT: SURGICAL PATHOLOGY RECD BY: Osmin Coe ENTERED: 12/17/24 09:01 SP TYPE: Lesion OTHR DR: Romy Alvarez MD Tissues: A - Skin of eyelid, NOS Procedures: Surgery Specimen Level III HEADER OPERATION: Right upper eyelid PRE-OP DIAGNOSIS: Lesion TISSUE SUBMITTED: A- Right upper eyelid lesion MICROSCOPIC DIAGNOSIS A. Skin, right upper eyelid, shave biopsy: Benign fibroepithelial polyp. MICROSCOPIC DESCRIPTION Slides are reviewed. GROSS DESCRIPTION A. Received in formalin in a container labeled with the patient's name, date of , and right upper eyelid is a 0.3 x 0.2 cm unoriented and irregular skin shave with a depth of 0.1 cm. The mai-chi epidermis exhibits a 0.1 x 0.1 x 0.1 cm possible nodule that abuts the peripheral margin. The probable resection margin is inked green, and it is submitted entirely in A1. [facility] 12-17-2024 CPT:01290
== END | disposition home or self-care (01) ==
LOC: LABSPEC 14:55
PROVIDERS: PCP Family Medicine; Referring Provider Family Medicine; Visit Provider Family Medicine
DX: L98.9 Disorder of the skin and subcutaneous tissue, unspecified (principal)
CPT/HCPCS: 88304; 88305

== ENCOUNTER → 2025-01-21 | Outpatient (CLI) | payer MEDICARE, MEDICAID, SELFPAY ==
[2025-01-21 16:04] LABS: PSA,Total - Annual Screen 0.37 ng/mL (0.02-4.00)
== END | disposition home or self-care (01) ==
LOC: MFPLAB 11:37
PROVIDERS: PCP Family Medicine
DX: Z12.5 Encounter for screening for malignant neoplasm of prostate (principal)
CPT/HCPCS: 36415; 84153; G0103

== ENCOUNTER → 2025-02-25 | Outpatient (CLI) | payer MEDICARE, MEDICAID, SELFPAY ==
--- NOTE | 2025-02-25 15:28 | RAD_ITS ---
PROCEDURE: HAND MIN 3 VIEWS 02/25/2025 REASON FOR EXAM: RIGHT HAND TECHNIQUE: HAND MIN 3 VIEWS Laterality: Right COMPARISON: No FINDINGS: Status post 2nd digit amputation. Old 5th metacarpal neck fracture. Scattered mild hand osteoarthritis, mainly interphalangeal joints. No acute bone or soft tissue pathology. RAD/Hand Min 3 Views IMPRESSION: No acute findings. Reading [facility]
== END | disposition home or self-care (01) ==
LOC: MTRAD 15:24
PROVIDERS: PCP Family Medicine; Referring Provider Family Medicine; Visit Provider Family Medicine
DX: M79.641 Pain in right hand (principal)
CPT/HCPCS: 73130

== ENCOUNTER 2025-05-29 11:50 | Outpatient (CLI) | payer MEDICARE, MEDICAID, SELFPAY ==
[2025-05-29 16:56] LABS: FOLATES,SERUM (FOLIC ACID) 11.30 ng/mL (4.60-34.80)
[2025-05-29 17:18] LABS: Ferritin 42 ng/mL (37-417); Vitamin B12 832 pg/mL (180-914)
[2025-05-31 13:09] LABS: ANTINUCLEAR ANTIBODIES DIRECT Negative (Negative)
== END 2025-05-29 23:59 | disposition home or self-care (01) ==
LOC: MTLAB 11:51
PROVIDERS: PCP Family Medicine; Referring Provider Family Medicine; Visit Provider Family Medicine
DX: R25.1 Tremor, unspecified (principal); G47.00 Insomnia, unspecified
CPT/HCPCS: 36415; 82607; 82728; 82746; 84439; 84443; 86038